=== PATIENT | male | born 1940 | race Caucasian/White ===

== ENCOUNTER → 2018-11-04 | Outpatient (CLI) | payer MEDICARE, MEDICAID ==
--- NOTE | 2018-11-04 08:12 | US ---
EXAMINATION TYPE: US carotid duplex BILAT DATE OF EXAM: 11/04/2018 COMPARISON: US 12/28/2017 CLINICAL HISTORY: I65.23 Occlusion and stenosis of bilateral carotid. EXAM MEASUREMENTS: RIGHT: Peak Systolic Velocity (PSV) cm/sec ----- Right CCA: 91.7 ----- Right ICA: 106.9 ----- Right ECA: 122.0 ICA/CCA ratio: 1.2 RIGHT: End Diastole cm/sec ----- Right CCA: 28.5 ----- Right ICA: 37.4 ----- Right ECA: 19.7 LEFT: Peak Systolic Velocity (PSV) cm/sec ----- Left CCA: 99.2 ----- Left ICA: 96.6 ----- Left ECA: 116.1 ICA/CCA ratio: 1.0 LEFT: End Diastole cm/sec ----- Left CCA: 31.9 ----- Left ICA: 39.6 ----- Left ECA: 16.3 VERTEBRALS (direction of flow): Right Vertebral: Antegrade Left Vertebral: Antegrade Rhythm: Normal IMPRESSION: Plaque noted bilaterally again. ? slightly better than last time? No significant stenosis seen Criteria for Assigning % of Stenosis / Diameter reduction (Estimation based on the indirect measurements of the internal carotid artery velocities (ICA PSV). 1. Normal (no stenosis)=ICA PSV < 125 cm/s: ratio < 2.0: ICA EDV<40 cm/s. 2. Less than 50% stenosis=ICA PSV < 125 cm/s: ratio < 2.0: ICA EDV<40 cm/s. 3. 50 to 69% stenosis=ICA PSV of 125 to 230 cm/s: ration 2.0 ? 4.0: ICA EDV 40-100 cm/s. 4. Greater than 70% stenosis to near occlusion= ICA PSV > 230 cm/s: ratio > 4.0: ICA EDV > 100 cm/s. 5. Near occlusion= ICA PSV velocities may be low or undetectable: variable ratio and ICA EDV. 6. Total occlusion=unable to detect flow.
== END | disposition home or self-care (01) ==
LOC: RADUSWWP 07:28
PROVIDERS: ATTEND Internal Medicine
DX: I65.23 Occlusion and stenosis of bilateral carotid arteries (principal)
CPT/HCPCS: 93880

== ENCOUNTER 2020-12-17 14:52 | Emergency (ER) | payer MEDICAID, MEDICARE ==
[2020-12-17 15:02] VITALS: TEMP 97.9
[2020-12-17 15:16] VITALS: RESP 18
--- NOTE | 2020-12-17 15:31 | ED ---
Chest Pain HPI <Mason Whittaker - Last Filed: 12/17/20 15:45> - General Source: patient Mode of arrival: wheelchair Limitations: no limitations <Samantha Merino - Last Filed: 12/17/20 20:12> - General Chief Complaint: Chest Pain Stated Complaint: Chest Pain - History of Present Illness Initial Comments: 80-year-old male with past history of asthma, recurrent vasovagal syncope who presents to the emergency department with reported chest pain. Patient states he was doing some heavy lifting last night. He woke this morning and at approximately 8:40 the patient began having left-sided chest wall pain which radiated into his left neck and arm. The patient denies any numbness, tingling or weakness into his extremities. No fevers, chills or cough. Patient denies previous history of cardiac disease. Does state that he has an irregular heart rhythm.. Last stress test was a few years ago. States his last catheterization was in 1984. He denies any associated nausea, vomiting or diaphoresis. No fevers, chills or cough. No numbness, teething or weakness into his legs. No abdominal pain. No other alleviating, recent dictating or modifying factors (Samantha Merino) - Related Data Home Medications Medication Instructions Recorded Confirmed Multivitamin/Iron/Folic Acid 1 tab PO DAILY 04/23/14 12/17/20 [Centrum Complete Multivit Tab] Losartan [Cozaar] 50 mg PO DAILY 12/28/17 12/17/20 Aspirin EC [Ecotrin Low Dose] 81 mg PO DAILY 12/17/20 12/17/20 Sildenafil Citrate 100 mg PO DAILY PRN 12/17/20 12/17/20 Tamsulosin HCl [Flomax] 0.4 mg PO HS 12/17/20 12/17/20 Previous Rx's Medication Instructions Recorded Atorvastatin [Lipitor] 10 mg PO HS #90 tab 12/29/17 Allergies Allergy/AdvReac Type Severity Reaction Status Date / Time Sulfa (Sulfonamide Allergy Unknown Verified 12/17/20 16:32 Antibiotics) Childhood Review of Systems ROS Other: All systems not noted in ROS Statement are negative. <Mason Whittaker - Last Filed: 12/17/20 15:45> ROS Other: All systems not noted in ROS Statement are negative. <Samantha Merino - Last Filed: 12/17/20 20:12> ROS Statement: Those systems with pertinent positive or pertinent negative responses have been documented in the HPI. EKG Findings - EKG Comments: EKG Findings:: EKG demonstrates a bigeminy rhythm. Rate of 58. MD interval 158. QRS 86. QTC of 412. No acute ST segment elevations or depressions <Samantha Merino - Last Filed: 12/17/20 20:12> Past Medical History Past Medical History: Asthma, Prostate Disorder, Syncope Additional Past Medical History / Comment(s): low heart rate History of Any Multi-Drug Resistant Organisms: None Reported Past Surgical History: Adenoidectomy, Appendectomy, Prostate Surgery, Tonsillectomy Additional Past Surgical History / Comment(s): cardiac cath 1985 eyelid surgery diana; reduction of prostate in 2012; TURP 12/26/17 Past Anesthesia/Blood Transfusion Reactions: No Reported Reaction Past Psychological History: No Psychological Hx Reported Smoking Status: Never smoker Past Alcohol Use History: Daily Past Drug Use History: None Reported - Past Family History Father Family Medical History: Cancer Additional Family Medical History / Comment(s): Father of prostate CA Mother Family Medical History: Coronary Artery Disease (CAD), Hypertension Sister(s) Family Medical History: Cancer Additional Family Medical History / Comment(s): at age 55 of colon CA <Samantha Merino - Last Filed: 12/17/20 20:12> General Exam Limitations: no limitations <Samantha Merino - Last Filed: 12/17/20 20:12> Course <Mason Whittaker - Last Filed: 12/17/20 15:45> Vital Signs 12/17/20 12/17/20 12/17/20 14:59 15:16 15:46 Temperature 97.9 F Pulse Rate 66 64 60 Respiratory 16 18 18 Rate Blood Pressure 143/57 150/88 135/77 O2 Sat by Pulse 99 99 98 Oximetry 12/17/20 16:35 Temperature 97.9 F Pulse Rate 67 Respiratory 18 Rate Blood Pressure 138/81 O2 Sat by Pulse 98 Oximetry - Reevaluation(s) Reevaluation #1: 12/17/20 15:45 I was asked to enter the chart to provide the laboratory results to cardiology. No other interaction. (Mason Whittaker) Chest Pain MDM <Samantha Merino - Last Filed: 12/17/20 20:12> - [facility] Upon arrival patient is placed in room 6. There are history and physical exam was performed. I do speak with Dr. Kern about the patient. Laboratory studies were conducted and the patient went for chest x-ray. Dr. Kern does present to the emergency department and evaluates the patient's EKG. Results are reviewed and demonstrated a negative troponin. Chest x-ray demonstrates no acute process. The results are discussed with Dr. Kern, the patient and myself. Dr. Hendricks also presents emergency department to see the patient. At this time the patient will be discharged home. Encouraged to increase fluid intake and take Aleve for the pain. Dr. Kern would like the patient follow-up in his office tomorrow for an echo. The patient is informed of this. He has any new or worsening symptoms return to the emergency room. Patient was discharged home in stable condition (Samantha Merino) Disposition <Mason Whittaker - Last Filed: 12/17/20 15:45> Is patient prescribed a controlled substance at d/c from ED?: No Time of Disposition: 16:27 <Samantha Merino - Last Filed: 12/17/20 20:12> Clinical Impression: Atypical chest pain Disposition: HOME SELF-CARE Condition: Stable Instructions (If sedation given, give patient instructions): Chest Pain (ED) Additional Instructions: Please increase fluid intake. Take Aleve for pain. Follow up in Dr. Tello office for Echo within 2 days. Return to the ED for any new or worsening symptoms. Referrals: Otis Veloz MD [Primary Care Provider] - 1-2 days Raymond Kern MD [Family Provider] - 1-2 days
[2020-12-17 15:33] LABS: Basophils # (A) 0.1 k/uL (0-0.2); Basophils % (A) 1 %; Eosinophils # (A) 0.2 k/uL (0-0.7); Eosinophils % (A) 4 %; HGB 14.8 gm/dL (13.0-17.5); Lymphocytes # (A) 1.4 k/uL (1.0-4.8); Lymphocytes % (A) 24 %; MCH 32.6 pg (25.0-35.0); MCHC 35.2 g/dL (31.0-37.0); MCV 92.6 fL (80.0-100.0); Mean Platelet Volume 8.9; Monocytes # (A) 0.4 k/uL (0-1.0); Monocytes % (A) 7 %; Neutrophils # (A) 3.3 k/uL (1.3-7.7); Neutrophils % (A) 61 %; Platelet Count 151 k/uL (150-450); RBC 4.54 m/uL (4.30-5.90); RDW 11.9 % (11.5-15.5); WBC 5.5 k/uL (3.8-10.6)
[2020-12-17 15:42] LABS: Partial Thromboplastin Time 24.8 sec (22.0-30.0); Prothrombin Time 10.8 sec (9.0-12.0)
[2020-12-17 15:44] LABS: Calcium 9.4 mg/dL (8.4-10.2); Potassium 4.3 mmol/L (3.5-5.1); Total Bilirubin 0.5 mg/dL (0.2-1.3); Total Protein 6.8 g/dL (6.3-8.2)
--- NOTE | 2020-12-17 15:55 | XR ---
EXAMINATION TYPE: XR chest 2V DATE OF EXAM: 12/17/2020 COMPARISON: 12/28/2017. HISTORY: Left chest pain. TECHNIQUE: Frontal and lateral views of the chest are obtained. FINDINGS: There is no focal air space opacity, pleural effusion, or pneumothorax seen. The cardiac silhouette size is within normal limits. The osseous structures are intact. IMPRESSION: No acute cardiopulmonary process.
[2020-12-17 16:36] VITALS: BP 138/81; PULSE 67
== END 2020-12-17 16:41 | disposition home or self-care (01) ==
LOC: EC 14:52
DX: R07.89 Other chest pain (principal); M54.2 Cervicalgia; M79.602 Pain in left arm; N42.9 Disorder of prostate, unspecified; Z79.899 Other long term (current) drug therapy; Z88.2 Allergy status to sulfonamides; Z90.49 Acquired absence of other specified parts of digestive tract; Z95.5 Presence of coronary angioplasty implant and graft; Z90.89 Acquired absence of other organs; X50.0XXA Overexertion from strenuous movement or load, initial encounter
CPT/HCPCS: 36415; 71046; 80053; 83735; 83880; 84484; 85025; 85610; 85730; 93005; 99285

== ENCOUNTER → 2020-12-22 | Outpatient (CLI) | payer MEDICARE ==
--- NOTE | 2020-12-25 09:02 | CT ---
EXAMINATION TYPE: CT angio thor/abd pel aorta DATE OF EXAM: 12/22/2020 COMPARISON: CT chest 02/12/2016 HISTORY: Thoracic aortic aneurysm. CT DLP: 1219 mGycm. Automated Exposure Control for Dose Reduction was Utilized. CONTRAST: CT scan of the thorax, abdomen and pelvis is performed without and with IV Contrast, patient injected with 100ml mL of Isovue 370. FINDINGS: LUNGS: The lungs are grossly clear, there is no concerning parenchymal mass or nodule identified. T here is no pleural effusion or pneumothorax seen. The tracheobronchial tree is patent. MEDIASTINUM: There are no greater than 1 cm hilar or mediastinal lymph nodes. No pericardial effusi on is seen. OTHER: The aortic root measures approximately 3.3 cm with some motion artifact, proximal ascending ao rta measures 3.6 cm, proximal descending aorta measures 2.5 cm. Aorta at the level of the hiatus kay ures approximately 2.3 cm. There is some mild atheromatous changes. Abdominal aorta measures approxim ately 2 cm at the level of the inferior mesenteric artery, common iliac artery on the right measures 1.3 cm and on the left 1.3 cm. Common femoral, proximal deep and superficial femoral arteries, internist al and external iliac arteries are patent. Inferior mesenteric artery, superior mesenteric artery, ce liac axis, renal arteries are patent. Super aortic branch vessels are patent, the left and right subc lavian, left and right common carotid arteries, innominate artery, left and right vertebral arteries are patent. Small hiatal hernia is questioned. LIVER/GB: Some low dense foci likely representing hepatic cysts are present within the left lobe kay uring approximately 3 cm and 3.2 cm, some smaller foci also scattered are indeterminate and subcentim eter in size, some dependent high density within the gallbladder may represent small stones. Probable streaming artifact present within the portal vein distal to the portal splenic confluence. PANCREAS: No significant abnormality is seen. SPLEEN: No significant abnormality is seen. ADRENALS: No significant abnormality is seen. KIDNEYS: No significant abnormality is seen. BOWEL: No significant abnormality is seen. GENITAL ORGANS: No gross abnormality seen. LYMPH NODES: No greater than 1cm abdominal or pelvic lymph nodes are appreciated. OSSEOUS STRUCTURES: Degenerative disc changes are noted within the spine, facet arthropathy noted at the lower lumbar spine. There is a slight spinal curvature. OTHER: Small umbilical hernia containing fat noted.. IMPRESSION: Aortic measurements as described. Possible cholelithiasis.
== END | disposition home or self-care (01) ==
LOC: RADCTMAIN 14:18
PROVIDERS: ATTEND Internal Medicine Interventional Cardiology
DX: I71.2 Thoracic aortic aneurysm, without rupture (principal)
CPT/HCPCS: 82565; 84520; 71275; 36415; 74174; Q9967

== ENCOUNTER 2021-08-23 13:08 | Emergency (ER) | payer MEDICARE ==
[2021-08-23 13:18] VITALS: BP 164/82; PULSE 61; RESP 18; TEMP 98.2
[2021-08-23] MEDS ORDERED: LIDOCAINE 1% INJ 10MG/ML (20 ML MDV) SQ ONE (13:25)
[2021-08-23] MEDS ORDERED: ACETAMINOPHEN TAB 325 MG TAB PO STA (13:25)
--- NOTE | 2021-08-23 14:00 | XR ---
EXAMINATION TYPE: XR finger LT DATE OF EXAM: 08/23/2021 CLINICAL HISTORY: saw injury TECHNIQUE: 3 views of the left second digit are submitted. COMPARISON: None FINDINGS: No displaced fracture is seen with certainty. Moderate degenerative change second proximal phalanx. Soft tissue laceration noted. Linear ossific density seen on the lateral projection dorsally could reflect radiopaque foreign body or bone chip. Correlate clinically. IMPRESSION: As above
[2021-08-23] MEDS ORDERED: CEPHALEXIN 500 MG CAP PO STA (14:24)
--- NOTE | 2021-08-23 14:29 | ED ---
Wound/Laceration HPI - General Chief Complaint: Wound/Laceration Stated Complaint: Finger Laceration Time Seen by Provider: 08/23/21 13:21 Source: patient, RN notes reviewed Mode of arrival: ambulatory Limitations: no limitations - History of Present Illness Initial Comments: Patient is an 81-year-old male that presents to the emergency department compl aining of a left index finger laceration. He notes he was clearing brush off the property using a brush saw. He notes that he was wearing gloves with a saw went through the glove also. He notes that he called his doctor and urgent care they told him to come the emergency room because it was a deep cut. Patient did have full range of motion and sensation of his left index finger. It was nonble eding at the time of exam. He notes that he is up-to-date on his tetanus within the last 10 years. He denied any other issues or complaints. He was otherwise well appearing 81-year-old male no apparent distress or pain. He denied any chest pain shortness of breath headache nausea vomiting diarrhea constipation fever fatigue chills weakness numbness tingling in his left index finger. - Related Data Home Medications Medication Instructions Recorded Confirmed Multivitamin/Iron/Folic Acid 1 tab PO DAILY 04/23/14 12/17/20 [Centrum Complete Multivit Tab] Losartan [Cozaar] 50 mg PO DAILY 12/28/17 12/17/20 Aspirin EC [Ecotrin Low Dose] 81 mg PO DAILY 12/17/20 12/17/20 Sildenafil Citrate 100 mg PO DAILY PRN 12/17/20 12/17/20 Tamsulosin HCl [Flomax] 0.4 mg PO HS 12/17/20 12/17/20 Previous Rx's Medication Instructions Recorded Atorvastatin [Lipitor] 10 mg PO HS #90 tab 12/29/17 Cephalexin [Keflex] 500 mg PO Q6HR #40 cap 08/23/21 Allergies Allergy/AdvReac Type Severity Reaction Status Date / Time Sulfa (Sulfonamide Allergy Unknown Verified 08/23/21 13:18 Antibiotics) Childhood Review of Systems ROS Statement: Those systems with pertinent positive or pertinent negative responses have been documented in the HPI. ROS Other: All systems not noted in ROS Statement are negative. Past Medical History Past Medical History: Asthma, Prostate Disorder, Syncope Additional Past Medical History / Comment(s): low heart rate History of Any Multi-Drug Resistant Organisms: None Reported Past Surgical History: Adenoidectomy, Appendectomy, Prostate Surgery, Tonsillectomy Additional Past Surgical History / Comment(s): cardiac cath 1985 eyelid surgery diana; reduction of prostate in 2012; TURP 12/26/17 Past Anesthesia/Blood Transfusion Reactions: No Reported Reaction Past Psychological History: No Psychological Hx Reported Smoking Status: Never smoker Past Alcohol Use History: Daily Past Drug Use History: None Reported - Past Family History Father Family Medical History: Cancer Additional Family Medical History / Comment(s): Father of prostate CA Mother Family Medical History: Coronary Artery Disease (CAD), Hypertension Sister(s) Family Medical History: Cancer Additional Family Medical History / Comment(s): at age 55 of colon CA General Exam Limitations: no limitations General appearance: alert, in no apparent distress Head exam: Present: atraumatic, normocephalic, normal inspection Eye exam: Present: normal appearance, PERRL, EOMI. Absent: scleral icterus, conjunctival injection, periorbital swelling ENT exam: Present: normal exam Neck exam: Present: normal inspection Respiratory exam: Present: normal lung sounds bilaterally. Absent: respiratory distress, wheezes, rales, rhonchi, stridor Cardiovascular Exam: Present: regular rate, normal rhythm, normal heart sounds. Absent: systolic murmur, diastolic murmur, rubs, gallop, clicks Extremities exam: Present: normal inspection, full ROM, normal capillary refill. Absent: tenderness, pedal edema, joint swelling, calf tenderness Neurological exam: Present: alert, oriented X3 Psychiatric exam: Present: normal affect, normal mood Skin exam: Present: warm, dry, intact, normal color. Absent: rash Expanded Type of lesion: Present: laceration (Dorsal aspect unless index finger proximal phalanx measuring approximately 4 cm, margins were approximated nonbleeding.) Course Vital Signs 08/23/21 13:12 Temperature 98.2 F Pulse Rate 61 Respiratory 18 Rate Blood Pressure 164/82 O2 Sat by Pulse 99 Oximetry Procedures - Laceration Laceration #1 Consent Obtained: verbal consent Indication: laceration Site: hand (Dorsal aspect left index finger) Size (cm): 4 Description: linear Depth: simple, single layer Anesthetic Used: lidocaine 1% Anesthesia Technique: local infiltration Amount (mls): 3 Pre-repair: irrigated extensively Type of Sutures: nylon Size of Sutures: 4-0 Number of Sutures: 4 Technique: simple, interrupted Patient Tolerated Procedure: well, no complications Medical Decision Making - Medical Decision Making 81-year-old male with a left index laceration from a brush. Patient is up-to-date on tetanus vaccine. Lidocaine, 325 mg of Tylenol ordered. Patient tolerated laceration repair well. 500 mg of Keflex given for prophylaxis. Antibiotics sent to pharmacy. Case discussed with Dr. Farmer, patient can discharge home. - Radiology Data Radiology results: report reviewed, image reviewed X-ray of the left fingers: No displaced fracture seen with certainty. Moderate degenerative change second proximal phalanx. Soft tissue laceration noted. Lenear ossific density seen on the lateral projection dorsally could reflect radiopaque foreign body or bony chip. Disposition Clinical Impression: Laceration Disposition: HOME SELF-CARE Condition: Stable Instructions (If sedation given, give patient instructions): Laceration (ED) Additional Instructions: Please return to the Emergency Department if symptoms worsen or any other concerns. Follow-up with primary care 1-2 days. Please return in 7-10 days as sutures removed. Keep finger and splint to protect it. Keep area clean and dry. Take Tylenol Motrin as needed for pain. Prescriptions: Cephalexin [Keflex] 500 mg PO Q6HR #40 cap Is patient prescribed a controlled substance at d/c from ED?: No Referrals: Lili Anne MD [Primary Care Provider] - 1-2 days Time of Disposition: 14:29
== END 2021-08-23 14:40 | disposition home or self-care (01) ==
LOC: EC 13:08
DX: S61.211A Laceration without foreign body of left index finger without damage to nail, initial encounter (principal); J45.909 Unspecified asthma, uncomplicated; Z79.82 Long term (current) use of aspirin; Z88.2 Allergy status to sulfonamides; Z90.49 Acquired absence of other specified parts of digestive tract; Z90.89 Acquired absence of other organs; W26.8XXA Contact with other sharp object(s), not elsewhere classified, initial encounter
CPT/HCPCS: 99283; 12002; 73140; J2001

== ENCOUNTER → 2022-06-12 | Outpatient (CLI) | payer MEDICARE ==
--- NOTE | 2022-06-12 15:46 | US ---
EXAMINATION TYPE: US kidneys/renal and bladder DATE OF EXAM: 06/12/2022 COMPARISON: CT aorta December 22, 2020 CLINICAL HISTORY: N18.1 CKD. CKD EXAM MEASUREMENTS: Right Kidney: 10.2 x 5.4 x 4.3 cm Left Kidney: 10.0 x 5.2 x 4.7 cm Right Kidney: No hydronephrosis or masses seen Left Kidney: Hypoechoic-possible anechoic area seen upper pole versus prominent pyramid Bladder: Appears anechoic. Bilateral Jets seen: Left jet seen. Possible right jet seen, right jet not seen with certainty. Bladder is adequately distended. Bilateral distal ureter just not identified. IMPRESSION: No hydronephrosis is seen bilaterally.
== END | disposition home or self-care (01) ==
LOC: RADUSWWP 14:53
PROVIDERS: ATTEND Internal Medicine
DX: N18.1 Chronic kidney disease, stage 1 (principal); R94.4 Abnormal results of kidney function studies
CPT/HCPCS: 76770

== ENCOUNTER → 2022-07-05 | Outpatient (CLI) | payer MEDICARE ==
--- NOTE | 2022-07-05 14:42 | CT ---
EXAMINATION TYPE: CT abdomen w con CT DLP: 634.20 mGycm, Automated exposure control for dose reduction was used. DATE OF EXAM: 07/05/2022 2:35 PM COMPARISON: CT abdomen pelvis 12/22/2020 6 ultrasound 06/12/2022 CLINICAL INDICATION:Male, 82 years old with history of R10.84; Previous findings on US regarding sple en. Pt not having any pain TECHNIQUE: Axial CT of the abdomen . Sagittal and coronal reformats were created on a separate works tation. Contrast used:100 mL of Isovue 300 with IV Contrast, Oral contrast used: with Oral Contrast FINDINGS: LOWER CHEST: Unremarkable ABDOMEN LIVER: Hepatic cysts are present some of which suggests either thin septations are nearby adjacent cy sts. GALLBLADDER AND BILE DUCTS: Density layering within the gallbladder. PANCREAS: Unremarkable. SPLEEN: No evidence of splenic mass or abnormality. Spleen is within normal limits for size. No evide nce for splenule. ADRENAL GLANDS: Unremarkable. KIDNEYS AND URETERS: No evidence of hydronephrosis or renal calculus. The ureters are unremarkable. STOMACH AND BOWEL: Few scattered clonic diverticula are present. No evidence of bowel obstruction. PERITONEUM: No evidence of pneumoperitoneum or free fluid. VASCULATURE: No evidence of aortic aneurysm. Atherosclerosis of the arterial vasculature. MUSCULOSKELETAL: No acute osseous abnormalities. Mild disc degeneration changes are present throughou t the thoracolumbar spine. LYMPH NODES: No gross evidence for lymphadenopathy. SOFT TISSUE/ABDOMINAL WALL: Fat filled umbilical hernia measuring 10 mm at the neck. IMPRESSION: 1. No abnormality involving the spleen. 2. Colonic diverticulosis. 3. Hepatic cysts some suggest thin septations. 4. Cholelithiasis.
== END | disposition home or self-care (01) ==
LOC: RADCTMAIN 13:04
PROVIDERS: ATTEND Internal Medicine
DX: K76.89 Other specified diseases of liver (principal); K80.20 Calculus of gallbladder without cholecystitis without obstruction; K57.30 Diverticulosis of large intestine without perforation or abscess without bleeding
CPT/HCPCS: 82565; 84520; 74160; 36415; Q9967 ×2

== ENCOUNTER 2023-06-20 06:02 | Day surgery (SDC) | payer MEDICARE ==
[2023-06-20] MEDS ORDERED: DEXAMETHASONE SOD PHOSPHATE 4 MG/ML 1 ML VIAL IV ONE (06:12)
[2023-06-20] MEDS ORDERED: LIDOCAINE 1% (10MG/ML) FOR IV START INTRADERMA PRN (06:12)
[2023-06-20] MEDS ORDERED: ONDANSETRON 4 MG/2 ML VIAL IVP ONE (06:12)
[2023-06-20] MEDS ORDERED: MIDAZOLAM 2 MG/2 ML VIAL IV PRN (06:12)
[2023-06-20] MEDS ORDERED: LACTATED RINGERS 1,000 ML IV SCH (06:12)
[2023-06-20] MEDS ORDERED: HYDROmorphone 0.5 MG/0.5 ML SYRINGE IVP PRN (07:00)
[2023-06-20] MEDS ORDERED: MIDAZOLAM 2 MG/2 ML VIAL IVP ONE (07:11)
[2023-06-20] MEDS ORDERED: fentaNYL (PF) 50 MCG/1 ML VIAL IVP ONE (07:12)
[2023-06-20] MEDS ORDERED: PROPOFOL 10 MG/ML 20 ML VIAL IV ONE (07:20)
[2023-06-20] MEDS ORDERED: WATER FOR INJECTION, STERILE 10 ML VIAL IV ONE (07:20)
[2023-06-20] MEDS ORDERED: ePHEDrine 50 MG/ML 1 ML VIAL ONE (07:20)
[2023-06-20] MEDS ORDERED: fentaNYL (PF) 50 MCG/ML 2 ML AMP ONE (07:20)
[2023-06-20] MEDS ORDERED: KETOROLAC 15 MG/ML 1 ML VIAL ONE (07:20)
[2023-06-20] MEDS ORDERED: ROCURONIUM 10 MG/ML (5 ML VIAL) IV ONE (07:20)
[2023-06-20] MEDS ORDERED: GLYCOPYRROLATE 0.2 MG/ML 2 ML VIAL ONE (07:20)
[2023-06-20] MEDS ORDERED: SODIUM CHLORIDE 0.9% (PF) 10 ML VIAL ONE (07:20)
[2023-06-20] MEDS ORDERED: LIDOCAINE 2% INJ 20 MG/ML (2 ML VIAL) ONE (07:20)
[2023-06-20] MEDS ORDERED: NEOSTIGMINE 1 MG/ML 10 ML VIAL ONE (07:20)
[2023-06-20] MEDS ORDERED: DEXAMETHASONE SOD PHOSPHATE 4 MG/ML 1 ML VIAL ONE (07:20)
[2023-06-20] MEDS ORDERED: SUCCINYLCHOLINE CHLORIDE 200 MG/10 ML VIAL IV ONE (07:20)
[2023-06-20] MEDS ORDERED: PHENYLEPHRINE-0.9% NACL SYG 1,000 MCG/10 ML SYRINGE ONE (07:20)
[2023-06-20] MEDS ORDERED: ROPIVACAINE 5 MG/ML 30 ML VIAL ONE (07:20)
--- NOTE | 2023-06-20 08:30 | P.OP ---
Date of Procedure: 06/20/23 Preoperative Diagnosis: Left Achilles tendon rupture Postoperative Diagnosis: Same Procedure(s) Performed: Primary repair left Achilles tendon rupture Implants: 4.75 mm swivel lock anchors 2 Anesthesia: ENDERA Surgeon: Rohit De La Rosa Estimated Blood Loss (ml): 5 Pathology: none sent Condition: stable Disposition: PACU Description of Procedure: Prior to the patient being brought to the operative room, anesthesia administered a nerve block and left lower extremity. Patient was then brought into the operating room where timeout was taken to confirm correct patient identifiers, correct laterally of surgery, and correct procedure. Once all staff in the room were in agreement the timeout, the patient was induced and placed under general anesthesia. The patient was then placed on the operating table in the prone position, with appropriate padding in the thoracic area as well as the face. Once anesthesia was satisfied with position of the patient, a well-padded tourniquet was placed on the left thigh. The left leg was then prepped and draped in usual manner. Attention was directed to the posterior aspect the left ankle, where there was a palpable defect in the watershed area of the Achilles tendon. A transverse incision was made near the proximal stump of the Achilles rupture. It was deepened under the subcutaneous tissue careful to identify, avoid, and retract any neurovascular structures and cauterize any bleeding vessels. Blunt dis section was continued down to level of the peritenon. Blunt instrumentation was inserted on the medial lateral side of the Achilles tendon to separate the peritenon from the proximal stump. A large sponge forceps was used to grasp proximal stump of the Achilles tendon and pull it distally. The Arthrex PARS jig was inserted on either side of the Achilles tendon with the inner arms inside the peritenon. With tension placed on the proximal stump of the Achilles tendon, a needle was passed through the #1 position of the PARS jig to lock the tendon in place. The #2 suture was passed next. The looped locking stitches were passed through the holes 3 and 4. The last suture was through 5. The sutures are then evened out and then the PARS jig was retracted distally to pull the suture within the peritenon and along the course of the proximal stump of the Achilles tendon. The sutures were delivered into the surgical field. The looped sutures were used to pass the #2 suture to create a locking stitch both medially and laterally. The looped sutures then placed on the back table and set aside. Tension was placed on both suture stacks and pulled distally to remove any creep from the suture in the tendon. Once the creep was removed, tension was placed on the tendon and it was indicated that the suture had a good grasp of the tendon given that the gastroc muscle belly was moving while pulling on the suture. 2 small stab incisions were made on the medial lateral aspects of the Achilles tendon insertion over the calcaneus. Those incisions are taken directly down to bone. The drill bit for the 4.75 mm swivel lock anchor was used to create drill holes in the calcaneus. The drill holes were then tapped. The suture passer was placed through the calcaneal incisions and then passed through the distal stump of the Achilles tendon exiting out at the rupture site. The suture passer was then used to grasp the suture stack and pull it through the distal stump of the tendon and out the corresponding incision over the calcaneus. This is then repeated with the opposite side. With tension placed on the suture to bring the tendon ends together, the suture was passed through the swivel lock anchor which was then inserted into the drill hole in the calcaneus and the swivel lock was impacted and advanced to lock the suture in place. This was then repeated for the opposite side. Then the knee was flexed and Perez's test was performed. Perez's test was negative. The suture was cut and the wound is thoroughly irrigated with antibiotic saline. Subcutaneous closure of all incisions was done with 4-0 Monocryl. The L-shaped incision over the rupture was closed with 4-0 Stratafix in a running subcuticular manner. Dermal glue was applied over all the incisions as well as the schuler made by the passing needles. Once dried Steri-Strips are placed over the incisions. An Arthrex jumpstart dressing was placed over the incisions and then covered with a dry sterile dressing. Then the patient was placed in a below-knee fracture boot with the ankle slightly plantar flexed. The patient was rolled onto the transfer table in the supine position and then anesthesia was reversed. The patient was taken recovery with vital signs stable.
[2023-06-20 08:39] VITALS: TEMP 97.2
[2023-06-20 09:02] VITALS: RESP 16
[2023-06-20 09:36] VITALS: BP 137/74; PULSE 66
--- NOTE | 2023-06-20 17:28 | P.ANPRN ---
Procedure Note - Anesthesia - Nerve Block Performed Left Adductor Canal Time Out Performed: Yes (07:11) Date of Procedure: 06/20/23 Procedure Start Time: :11 Procedure Stop Time: :16 Location of Patient: PreOp Indication: Acute Post-Operative Pain, Requested by Surgeon (Dr De La Rosa) Sedation Type: Sedate with meaningful contact maintained Preparation: Sterile Prep Position: Supine Catheter: None Needle Types: Pajunk Needle Gauge: 21 Ultrasound used to visualize needle placement: Yes Ultrasound used to observe medication spread: Yes Injectate: 0.5% Ropivacaine (see comment for volume) (20cc) Blood Aspirated: No Pain Paresthesia on Injection Noted: No Resistance on Injection: Normal Image Stored and Saved: Yes Events: Uneventful and Well Tolerated
--- NOTE | 2023-06-20 17:30 | P.ANPRN ---
Procedure Note - Anesthesia - Nerve Block Performed Left Popliteal Time Out Performed: Yes Date of Procedure: 06/20/23 Procedure Start Time: : Procedure Stop Time: : Location of Patient: PreOp Indication: Acute Post-Operative Pain, Requested by Surgeon (Dr De La Rosa) Sedation Type: Sedate with meaningful contact maintained Preparation: Sterile Prep Position: Right Lateral Catheter: None Needle Types: Pajunk Needle Gauge: 21 Ultrasound used to visualize needle placement: Yes Ultrasound used to observe medication spread: Yes Injectate: 0.5% Ropivacaine (see comment for volume) (15cc +5cc PF Normal saline. Decadron 4mg) Blood Aspirated: No Pain Paresthesia on Injection Noted: No Resistance on Injection: Normal Image Stored and Saved: Yes Events: Uneventful and Well Tolerated
== END 2023-06-20 10:43 | disposition home or self-care (01) ==
LOC: OR 06:02
PROVIDERS: ATTEND Podiatrist
DX: S86.012A Strain of left Achilles tendon, initial encounter (principal); G89.18 Other acute postprocedural pain; I10 Essential (primary) hypertension; Z82.49 Family history of ischemic heart disease and other diseases of the circulatory system; Z79.899 Other long term (current) drug therapy; X58.XXXA Exposure to other specified factors, initial encounter
CPT/HCPCS: 64447; 64445; 27650; C1713 ×2; J2250; J0330; J1100; J2710; J0690; J2405; J3010 ×2; J2795; J1885; J2704; J2001; J2371

== ENCOUNTER → 2024-07-09 | Outpatient (CLI) | payer MEDICARE ==
--- NOTE | 2024-08-07 19:20 | US ---
Site ID [facility] Patient Jitendra Olson ID [id number] Age/Gender: 84Y, N/A Order # N/A Procedure US carotid duplex BILAT Date 07/09/2024 2:37:00 PM EXAMINATION TYPE: US carotid duplex BILAT DATE OF EXAM: 07/28/2024 COMPARISON: None, please note PACS Production downtime occurred during the radiologist interpretation of these images with limited priors/reports. CLINICAL INDICATION: 84 year old with history of carotid stenosis. TECHNIQUE: Carotid duplex ultrasound examination. Indirect Doppler criteria was utilized. FINDINGS: EXAM MEASUREMENTS: RIGHT: Peak Systolic Velocity (PSV) cm/sec ----- Right CCA: 104 ----- Right ICA: 124 ----- Right ECA: 118 ICA/CCA ratio: 1.2 RIGHT: End Diastole cm/sec ----- Right CCA: 25.8 ----- Right ICA: 37.4 ----- Right ECA: 12.2 LEFT: Peak Systolic Velocity (PSV) cm/sec ----- Left CCA: 120 ----- Left ICA: 102 ----- Left ECA: 106 ICA/CCA ratio: 0.9 LEFT: End Diastole cm/sec ----- Left CCA: 23.0 ----- Left ICA: 32.4 ----- Left ECA: 12.6 VERTEBRALS (direction of flow): Right Vertebral: Antegrade Left Vertebral: Antegrade CHEF FRENCH NOTES: Mild to moderate atherosclerotic plaque within the right carotid bulb/proximal ICA. [id number] atherosclerotic plaque within the left carotid bifurcation. IMPRESSION: Atherosclerotic plaque without ultrasound evidence for hemodynamically significant stenosis of the vi sualized bilateral arterial carotid systems. Criteria for Assigning % of Stenosis / Diameter reduction (Estimation based on the indirect measurements of the internal carotid artery velocities (ICA PSV). 1. Normal (no stenosis)=ICA PSV < 125 cm/s: ratio < 2.0: ICA EDV<40 cm/s. 2. Less than 50% stenosis=ICA PSV < 125 cm/s: ratio < 2.0: ICA EDV<40 cm/s. 3. 50 to 69% stenosis=ICA PSV of 125 to 230 cm/s: ration 2.0 ? 4.0: ICA EDV 40-100 cm/s. 4. Greater than 70% stenosis to near occlusion= ICA PSV > 230 cm/s: ratio > 4.0: ICA EDV > 100 cm/s. 5. Near occlusion= ICA PSV velocities may be low or undetectable: variable ratio and ICA EDV. 6. Total occlusion=unable to detect flow.
== END | disposition home or self-care (01) ==
LOC: RADUSWWP 12:00
PROVIDERS: ATTEND Internal Medicine
DX: I34.0 Nonrheumatic mitral (valve) insufficiency (principal); I65.23 Occlusion and stenosis of bilateral carotid arteries; I70.90 Unspecified atherosclerosis
CPT/HCPCS: 93306; 93880

== ENCOUNTER → 2025-03-23 | Outpatient (CLI) | payer MEDICARE ==
--- NOTE | 2025-03-23 13:23 | CT ---
EXAMINATION TYPE: CT abdomen pelvis wo con DATE OF EXAM: 03/23/2025 COMPARISON: 07/05/2022 CLINICAL INDICATION: Male, 84 years old with history of R10.9 LEFT FLANK PAIN; PHH, LT flank pain, co ncern for renal stones or diverticulitis, does have hx of diverticulosis. TECHNIQUE: CT scan of the abdomen and pelvis is performed without oral or IV contrast. CT DLP: 590.[address] CTDI: mGy Automated exposure control for dose reduction was used. FINDINGS: Within the limitations of a non-contrast study, the following observations are made. The lungs are clear. There are 2 small gallstones but no gallbladder wall thickening, distention or pericholecystic fluid. There is no biliary ductal dilatation. There is no organomegaly of the liver, pancreas, spleen or adrenal glands. There is a 6.3 cm cyst of the left lobe of the liver. There are no renal calcifications or hydronephrosis. The caliber of the abdominal aorta is normal and there is no retroperitoneal adenopathy or hemorrhage . The bowel loops are normal in caliber is no evidence of obstruction. No inflammatory changes are iden tified in the mesentery and there is no free intraperitoneal air or fluid. There is no pelvic mass, free fluid, abscess or adenopathy. There is mild diverticulosis of the colon without CT evidence of diverticulitis. The osseous structures and soft tissues are unremarkable. IMPRESSION: 1. Cholelithiasis. 2. 6.3 cm simple hepatic cyst left lobe of the liver. 3. No renal calcifications or hydronephrosis. 4. No acute changes within the abdomen or pelvis. [facility], , 03/23/2025 1:21 PM
== END | disposition home or self-care (01) ==
LOC: RADCTMAIN 12:46
PROVIDERS: ATTEND Internal Medicine
DX: K80.20 Calculus of gallbladder without cholecystitis without obstruction (principal); K76.89 Other specified diseases of liver
CPT/HCPCS: 74176

== ENCOUNTER → 2025-04-15 | Outpatient (CLI) | payer MEDICARE ==
--- NOTE | 2025-04-15 15:20 | NM ---
EXAMINATION TYPE: NM hepatobiliary w EF DATE OF EXAM: 04/15/2025 COMPARISON: Correlation CT 03/23/2025 CLINICAL INDICATION: Male, 85 years old with history of K80.20 GALLSTONES; abdominal pain TECHNIQUE: After the intravenous administration of 4.7 mCi Tc 99m Mebrofenin hepatobiliary scintigrap hy is performed. Immediate images post injection. FINDINGS: There is satisfactory initial accumulation of tracer by the liver. The gallbladder is visualized scarlett ost immediately. The small bowel activity is noted within 24 minutes. At one hour 8 ounces of oral e nsure plus is given to mimic CCK and gallbladder ejection fraction is calculated at 40 %, in the norm al range. Therefore there is no scintigraphic evidence of cystic or common bile duct obstruction to suggest acute cholecystitis or gallbladder dyskinesia. IMPRESSION: No scintigraphic evidence for acute/chronic cholecystitis or biliary dyskinesia. [facility], , 04/15/2025 3:17 PM
== END | disposition home or self-care (01) ==
LOC: RADNMMAIN 10:25
PROVIDERS: ATTEND Internal Medicine
DX: K80.20 Calculus of gallbladder without cholecystitis without obstruction (principal)
CPT/HCPCS: 78226; A9537